=== PATIENT | male | born 1980 | race Hispanic/Latino ===

== ENCOUNTER 2024-06-27 17:30 | Inpatient (IN) | payer OTHER, SELFPAY ==
[2024-06-27] MEDS ORDERED: Azithromycin 500 MG VIAL ONE (18:03)
[2024-06-27 18:26] LABS: Actual Bicarbonate (HCO3a) 23.7 mEq/L (22-28); Analyzer IN Cardio ER; Base Excess (BEa) -0.2 mEq/L (-2.0 to +3.0); CO2 Tension 36.2 mmHg (35.0-45.0); Calcium, Ionized (arterial) 1.05 mmol/L (1.12-1.30); Carboxyhemoglobin (COHb) 0.3 gm% (0.0-3.0); Hematocrit-ABG 33 % (42.0-52.0); Hemoglobin (Hb) 11.2 g/dL (14.0-18.0); O2 Tension (PaO2), arterial 111.6 mmHg (80.0-100.0); pH, Arterial 7.434 (7.35-7.45)
[2024-06-27 18:29] LABS: Puncture Site Right Radial artery
[2024-06-27 18:37] LABS: #Basophils 0.04 10x3/uL (0.0-0.2); #Eosinphils Less than 0.03 10x3/uL (0.0-0.7); %Basophils 0.3 % (0.0-1.0); %Eosinophils 0.1 % (0.0-10.0); %Lymphocytes 3.6 % (21.0-51.0); %Monocytes 6.1 % (0.0-10.0); %Neutrophils 89.1 % (42.0-75.0); Hematocrit 32.9 % (42.0-52.0); Hemoglobin 10.9 g/dL (14.0-18.0); Mean Corpuscular HGB CONC 33.1 g/dL (32.0-36.0); Mean Corpuscular Hemoglobin 33.5 pg (27.0-31.0); Mean Corpuscular Volume 101.2 fL (78.0-98.0); Mean Platelet Volume 8.5 fL (7.4-10.4); Platelet Count 374 10x3/uL (130-400); RBC Distribution Width 12.8 % (11.5-14.5); Red Blood Cell (RBC) Count 3.25 mill/uL (4.70-6.10)
[2024-06-27 19:06] LABS: Troponin I 3.337 ng/mL (< 0.028)
[2024-06-27] MEDS ORDERED: Aspirin Chewable 81 MG TAB ONE (19:17)
[2024-06-27 21:02] LABS: Acetaminophen Less than 10 mcg/mL (Less than 10); Alcohol Less than 10.0 mg/dL (Less than 10); Salicylate Less than 8.0 mg/dL (Less than 8.0)
[2024-06-27] MEDS ORDERED: Enoxaparin 100 MG (1 mL) SYRINGE ONE (21:19)
[2024-06-27] MEDS ORDERED: Dextrose 5% in Water 1,000 ML IV PRN (21:24)
[2024-06-27] MEDS ORDERED: Dextrose 50% Abboject 50 ML SYRINGE SLOW IVP PRN (21:24)
[2024-06-27] MEDS ORDERED: Glucagon 1 MG/ML KIT IM PRN (21:24)
[2024-06-27 23:38] LABS: Troponin I 7.946 ng/mL (< 0.028)
[2024-06-28 01:55] LABS: Troponin I 10.733 ng/mL (< 0.028)
[2024-06-28] MEDS: Fluticasone Propionate Nasal Spray 16 gm Bottle NASAL SCH (03:02)
[2024-06-28] MEDS: Vancomycin (BATCH) 2 GM in Premix 1 BAG IVPB SCH ×2 (03:05→13:38)
[2024-06-28 04:05] LABS: Amphetamine Not Detected (NotDetected); Barbiturates Screen Not Detected (NotDetected); Benzodiazepine Screen Not Detected (NotDetected); Cocaine Metabolite Screen Not Detected (NotDetected); Methadone Not Detected (NotDetected); Methamphetamine Not Detected (NotDetected); Opiate Screen Not Detected (NotDetected); Oxycodone Screen Not Detected (NotDetected); Phencyclidine (PCP) Not Detected (NotDetected); THC/Cannabinoid Screen Not Detected (NotDetected); Tricyclic Screen Not Detected (NotDetected)
[2024-06-28 04:10] LABS: Legionella Urinary Ag Negative (Negative); Strep pneumo Urine Ag NEGATIVE (NEGATIVE)
[2024-06-28] MEDS ORDERED: Lorazepam 2 MG/ML VIAL IM PRN (05:04)
[2024-06-28] MEDS ORDERED: Lorazepam 1 MG TAB PO PRN (05:04)
[2024-06-28] MEDS ORDERED: Ondansetron ODT 4 MG TAB PO PRN (05:04)
[2024-06-28] MEDS ORDERED: Ipratropium/Albuterol 3 ML NEB NEB PRN (05:11)
[2024-06-28] MEDS ORDERED: Electrolyte Replacement Protocol 1 EACH FS SCH (05:15)
[2024-06-28 05:38] LABS: Hemoglobin A1c 7.8 % (4.0-6.0)
[2024-06-28] MEDS: Cefepime 2 GM in Sodium Chloride 0.9% 100 ML IVPB SCH ×2 (05:38→06:09)
[2024-06-28 05:44] LABS: Lactic Acid 1.19 mmol/L (0.5-2.2)
[2024-06-28 05:45] LABS: #Basophils 0.04 10x3/uL (0.0-0.2); #Eosinphils Less than 0.03 10x3/uL (0.0-0.7); %Basophils 0.3 % (0.0-1.0); %Eosinophils 0.1 % (0.0-10.0); %Lymphocytes 8.9 % (21.0-51.0); %Monocytes 7.3 % (0.0-10.0); %Neutrophils 82.5 % (42.0-75.0); Hematocrit 30.5 % (42.0-52.0); Mean Corpuscular HGB CONC 32.8 g/dL (32.0-36.0); Mean Corpuscular Hemoglobin 33.2 pg (27.0-31.0); Mean Corpuscular Volume 101.3 fL (78.0-98.0); Mean Platelet Volume 8.8 fL (7.4-10.4); Platelet Count 392 10x3/uL (130-400); Red Blood Cell (RBC) Count 3.01 mill/uL (4.70-6.10)
[2024-06-28 05:52] LABS: Critical Call Chem Troponin I RESULT DECREASING
[2024-06-28 05:57] LABS: ALT (SGPT) 13 U/L (8-55); AST (SGOT) 44 U/L (5-34); Albumin 2.5 g/dL (3.5-5.0); Alkaline Phosphatase 110 U/L (40-110); Anion Gap 15 mmol/L (10-20); BUN (Urea Nitrogen) 18 mg/dL (8.9-20.6); Bilirubin, Total 0.3 mg/dL (0.2-1.2); Calc. Creatinine Clearance 211 mL/min (70-130); Calcium 8.3 mg/dL (7.8-10.44); Carbon Dioxide 21 mmol/L (22-29); Chloride 107 mmol/L (98-107); Estimated GFR 118; Globulin 4.5 g/dL (2.4-3.5); Glucose 135 mg/dL (70-105); Magnesium 1.7 mg/dL (1.6-2.6); Potassium 3.4 mmol/L (3.5-5.1); Sodium 140 mmol/L (136-145)
[2024-06-28 06:03] LABS: Bilirubin, Direct 0.1 mg/dL (0.1-0.3); Phosphorus 1.9 mg/dL (2.3-4.7)
[2024-06-28] MEDS: Thiamine HCl 200 MG/2 ML VIAL SLOW IVP SCH (06:03)
[2024-06-28] MEDS: Lorazepam 1 MG TAB PO SCH (06:03)
[2024-06-28] MEDS: Furosemide 20 MG (2 mL) VIAL SLOW IVP SCH (06:04)
[2024-06-28] MEDS: Acetaminophen 325 MG TAB PO PRN (06:16)
[2024-06-28] MEDS ORDERED: Magnesium 2 GM/50 ML(in water) 2 GM in Premix 1 BAG IVPB SCH (08:00)
[2024-06-28] MEDS ORDERED: Vancomycin 1.25 GM in Sodium Chloride 0.9% 250 ML 250 ML IVPB SCH (08:00)
[2024-06-28] MEDS: Multivit, Therapeutic 1 TAB PO SCH (08:48)
[2024-06-28] MEDS: PHOS-NAK 1 PKT PACK PO SCH (08:48)
[2024-06-28] MEDS: Magnesium 2 GM/50 ML(in water) 2 GM in Premix 1 BAG IVPB SCH (08:49)
[2024-06-28] MEDS: Enoxaparin 40 MG (0.4 mL) SYRINGE SC SCH (08:49)
[2024-06-28] MEDS: guaiFENesin ER 600 MG TAB PO SCH (08:49)
[2024-06-28] MEDS: Folic Acid 1 MG TAB PO SCH (08:49)
[2024-06-28] MEDS: Potassium Chloride 20 MEQ TAB PO SCH ×2 (08:49→16:52)
[2024-06-28] MEDS: Aspirin 81 mg Enteric Coated Tablet PO SCH (11:27)
[2024-06-28] MEDS: Vancomycin (BATCH) 1.25 GM in Premix 1 BAG IVPB SCH (11:28)
[2024-06-28] MEDS: Metoprolol Tartrate 25 MG TAB PO SCH ×2 (11:28→19:57)
[2024-06-28] MEDS: Enoxaparin 60 MG (0.6 mL) SYRINGE SC SCH (11:28)
[2024-06-28 13:59] LABS: Potassium 3.5 mmol/L (3.5-5.1)
[2024-06-28] MEDS: Insulin Lispro 100 UNIT/ML 10 ML VIAL SC PRN (16:53)
[2024-06-28] MEDS: Atorvastatin Calcium 40 MG TAB PO SCH (19:57)
[2024-06-28] MEDS: Azithromycin 500 MG in Sodium Chloride 0.9% 250 ML 250 ML IVPB SCH (19:58)
[2024-06-28] MEDS ORDERED: Loperamide HCl 2 MG CAP PO PRN (22:47)
[2024-06-29] MEDS: Ondansetron PF 4 MG/2 ML Vial IVP PRN (01:14)
[2024-06-29] MEDS: traMADol HCl 50 MG TAB PO PRN (01:23)
[2024-06-29] MEDS: Morphine 2 MG/ML VIAL SLOW IVP PRN (02:40)
[2024-06-29] MEDS: Dexmedetomidine In 0.9 % NaCl 100 ML IVPB SCH (02:41)
[2024-06-29 04:20] LABS: #Basophils 0.03 10x3/uL (0.0-0.2); #Eosinphils Less than 0.03 10x3/uL (0.0-0.7); %Basophils 0.2 % (0.0-1.0); %Eosinophils 0.1 % (0.0-10.0); %Monocytes 5.8 % (0.0-10.0); Hematocrit 33.1 % (42.0-52.0); Hemoglobin 10.5 g/dL (14.0-18.0); Mean Corpuscular HGB CONC 31.7 g/dL (32.0-36.0); Mean Corpuscular Hemoglobin 32.6 pg (27.0-31.0); Mean Corpuscular Volume 102.8 fL (78.0-98.0); Mean Platelet Volume 8.6 fL (7.4-10.4); Platelet Count 382 10x3/uL (130-400); RBC Distribution Width 12.7 % (11.5-14.5); Red Blood Cell (RBC) Count 3.22 mill/uL (4.70-6.10)
[2024-06-29 04:42] LABS: Phosphorus 2.2 mg/dL (2.3-4.7)
[2024-06-29 04:48] LABS: ALT (SGPT) 11 U/L (8-55); AST (SGOT) 19 U/L (5-34); Albumin 2.4 g/dL (3.5-5.0); Alkaline Phosphatase 90 U/L (40-110); Anion Gap 20 mmol/L (10-20); BUN (Urea Nitrogen) 20 mg/dL (8.9-20.6); Bilirubin, Total 0.3 mg/dL (0.2-1.2); Calc. Creatinine Clearance 214 mL/min (70-130); Calcium 8.6 mg/dL (7.8-10.44); Carbon Dioxide 20 mmol/L (22-29); Chloride 106 mmol/L (98-107); Estimated GFR 118; Globulin 4.7 g/dL (2.4-3.5); Glucose 194 mg/dL (70-105); Magnesium 2.1 mg/dL (1.6-2.6); Potassium 3.7 mmol/L (3.5-5.1); Protein, Total 7.1 g/dL (6.0-8.3); Sodium 142 mmol/L (136-145)
[2024-06-29 04:56] LABS: Vancomycin, Random 24.3 ug/mL (See Comment)
[2024-06-29] MEDS: Cefepime 2 GM in Sodium Chloride 0.9% 100 ML IVPB SCH (13:36)
[2024-06-29] MEDS: Sacubitril 24MG/Valsartan 26 MG TAB PO SCH (19:56)
[2024-06-29] MEDS: Insulin Glargine 30 UNITS/0.3 ML VIAL SC SCH (21:16)
[2024-06-29] MEDS: Promethazine HCl 12.5 MG in Sodium Chloride 0.9% 50 ML IVPB PRN (22:19)
[2024-06-30] MEDS: Lorazepam 1 MG TAB PO PRN ×2 (02:13→10:40)
[2024-06-30 05:43] LABS: #Basophils 0.05 10x3/uL (0.0-0.2); %Basophils 0.4 % (0.0-1.0); %Eosinophils 0.5 % (0.0-10.0); %Lymphocytes 9.4 % (21.0-51.0); %Monocytes 8.2 % (0.0-10.0); %Neutrophils 81.1 % (42.0-75.0); Hemoglobin 9.8 g/dL (14.0-18.0); Mean Corpuscular HGB CONC 33.8 g/dL (32.0-36.0); Mean Corpuscular Hemoglobin 33.7 pg (27.0-31.0); Mean Corpuscular Volume 99.7 fL (78.0-98.0); Mean Platelet Volume 8.7 fL (7.4-10.4); Platelet Count 376 10x3/uL (130-400); RBC Distribution Width 12.3 % (11.5-14.5); Red Blood Cell (RBC) Count 2.91 mill/uL (4.70-6.10)
[2024-06-30 06:06] LABS: ALT (SGPT) 9 U/L (8-55); AST (SGOT) 15 U/L (5-34); Albumin 2.3 g/dL (3.5-5.0); Alkaline Phosphatase 77 U/L (40-110); Anion Gap 17 mmol/L (10-20); BUN (Urea Nitrogen) 16 mg/dL (8.9-20.6); Bilirubin, Total 0.2 mg/dL (0.2-1.2); Calc. Creatinine Clearance 231 mL/min (70-130); Calcium 7.9 mg/dL (7.8-10.44); Carbon Dioxide 23 mmol/L (22-29); Chloride 102 mmol/L (98-107); Estimated GFR 121; Globulin 4.3 g/dL (2.4-3.5); Glucose 141 mg/dL (70-105); Potassium 3.5 mmol/L (3.5-5.1); Protein, Total 6.6 g/dL (6.0-8.3); Sodium 138 mmol/L (136-145)
[2024-06-30] MEDS: Lorazepam 0.5 MG TAB PO SCH (06:31)
[2024-06-30] MEDS: Potassium Chloride 20 MEQ TAB PO SCH (08:53)
[2024-06-30] MEDS ORDERED: Lidocaine 1% PF 5 ML VIAL ONE (11:55)
[2024-06-30] MEDS ORDERED: SUCCINYLCHOLINE/SOD CL,ISO/PF 200 MG/10 ML SYRINGE FS ONE (12:16)
[2024-06-30] MEDS ORDERED: Etomidate 40 MG (20 mL) VIAL ONE (12:17)
[2024-06-30] MEDS ORDERED: fentaNYL PF 100 MCG/2 ML SYRINGE ONE ×2 (12:19→13:42)
[2024-06-30] MEDS ORDERED: Rocuronium Bromide 10 MG/ML (10ML VIAL) ONE (12:20)
[2024-06-30] MEDS ORDERED: Midazolam HCl 2 mg/2 ml Vial ONE ×2 (12:20→13:36)
[2024-06-30] MEDS ORDERED: Ondansetron PF 4 MG/2 ML Vial ONE (12:20)
[2024-06-30 12:53] LABS: Potassium 3.6 mmol/L (3.5-5.1)
[2024-06-30] MEDS ORDERED: PROPOFOL 20 ML ONE (13:15)
[2024-06-30] MEDS ORDERED: PHENYLEPHRINE-NS 100 MCG/ML 10 ML SYRINGE ONE (13:28)
[2024-06-30] MEDS ORDERED: Ventilator Sedation Protocol 1 EACH FS SCH (13:43)
[2024-06-30] MEDS ORDERED: DISCONTINUE PREVIOUS NARCOTIC PAIN MEDICATIONS AND BENZODIAZEPINES FS SCH (14:00)
[2024-06-30] MEDS ORDERED: Propofol BOLUS 1,000 MG/100 ML VIAL IV PRN (14:00)
[2024-06-30] MEDS ORDERED: Fentanyl BOLUS 250 ML IVPB PRN (14:00)
[2024-06-30] MEDS: Fentanyl CADD 100 ML IV SCH (14:24)
[2024-06-30] MEDS: Lorazepam 2 MG/ML VIAL SLOW IVP PRN (14:27)
[2024-06-30] MEDS: fentaNYL 50 mcg/mL 1 mL Vial SLOW IVP SCH (14:30)
[2024-06-30] MEDS: Propofol 1,000 MG/100 ML VIAL IV PRN (14:44)
[2024-06-30] MEDS: fentaNYL 50 mcg/mL 1 mL Vial ONE (15:01)
[2024-06-30 16:55] LABS: Base Excess (BEa) 0.6 mEq/L (-2.0 to +3.0); CO2 Tension 45.1 mmHg (35.0-45.0); Calcium, Ionized (arterial) 1.03 mmol/L (1.12-1.30); Carboxyhemoglobin (COHb) 0.6 gm% (0.0-3.0); Hematocrit-ABG 29 % (42.0-52.0); O2 Tension (PaO2), arterial 114.4 mmHg (80.0-100.0); Potassium - ABG Lab 3.93 mmol/L (3.70-5.30); pH, Arterial 7.378 (7.35-7.45)
[2024-06-30 16:57] LABS: ALV-art Gradient 114.425 mmHg (0-20); Puncture Site Arterial Line
[2024-06-30] MEDS: Morphine 2 MG/ML VIAL SLOW IVP PRN (19:40)
[2024-06-30] MEDS: Sodium Chloride 0.9% 1,000 ML IV SCH (21:41)
[2024-06-30] MEDS: Sodium Chloride 0.9% 500 ML IV SCH (21:41)
[2024-07-01] MEDS: NOREPINEPHRINE 8 MG/250 ML-D5W 250 ML IVPB SCH (00:05)
[2024-07-01] MEDS: Dexmedetomidine 1,000 MCG in NS 250 mL IVPB SCH (03:03)
[2024-07-01 04:37] LABS: Bacteria/HPF None Seen HPF (None Seen); RBC/HPF 0-3 HPF (0-3); Squamous Epithelial 0-3 HPF (0-3)
[2024-07-01] MEDS ORDERED: Lorazepam 0.5 MG TAB PO PRN (05:04)
[2024-07-01 07:30] LABS: #Basophils 0.05 10x3/uL (0.0-0.2); #Eosinphils Less than 0.03 10x3/uL (0.0-0.7); %Basophils 0.3 % (0.0-1.0); %Eosinophils 0.1 % (0.0-10.0); %Lymphocytes 6.6 % (21.0-51.0); %Monocytes 8.3 % (0.0-10.0); %Neutrophils 83.8 % (42.0-75.0); Hematocrit 28.3 % (42.0-52.0); Hemoglobin 9.4 g/dL (14.0-18.0); Mean Corpuscular HGB CONC 33.2 g/dL (32.0-36.0); Mean Corpuscular Hemoglobin 34.3 pg (27.0-31.0); Mean Corpuscular Volume 103.3 fL (78.0-98.0); Mean Platelet Volume 8.8 fL (7.4-10.4); Platelet Count 327 10x3/uL (130-400); RBC Distribution Width 12.5 % (11.5-14.5); Red Blood Cell (RBC) Count 2.74 mill/uL (4.70-6.10)
[2024-07-01 07:47] LABS: Anion Gap 18 mmol/L (10-20); BUN (Urea Nitrogen) 20 mg/dL (8.9-20.6); Calc. Creatinine Clearance 114 mL/min (70-130); Calcium 7.4 mg/dL (7.8-10.44); Carbon Dioxide 20 mmol/L (22-29); Chloride 104 mmol/L (98-107); Estimated GFR 70; Glucose 123 mg/dL (70-105); Potassium 3.6 mmol/L (3.5-5.1); Sodium 138 mmol/L (136-145)
[2024-07-01] MEDS: Thiamine 100 MG TAB PO SCH (07:50)
[2024-07-01] MEDS ORDERED: traMADol HCl 50 MG TAB PO PRN (10:30)
[2024-07-01] MEDS: Morphine 2 MG/ML VIAL SLOW IVP PRN (10:47)
[2024-07-02 05:08] LABS: #Basophils 0.04 10x3/uL (0.0-0.2); #Eosinphils Less than 0.03 10x3/uL (0.0-0.7); %Basophils 0.2 % (0.0-1.0); %Eosinophils 0.1 % (0.0-10.0); %Lymphocytes 5.1 % (21.0-51.0); %Monocytes 6.1 % (0.0-10.0); %Neutrophils 87.1 % (42.0-75.0); Hematocrit 24.6 % (42.0-52.0); Hemoglobin 8.1 g/dL (14.0-18.0); Mean Corpuscular HGB CONC 32.9 g/dL (32.0-36.0); Mean Corpuscular Hemoglobin 33.8 pg (27.0-31.0); Mean Corpuscular Volume 102.5 fL (78.0-98.0); Mean Platelet Volume 9.4 fL (7.4-10.4); Platelet Count 343 10x3/uL (130-400); RBC Distribution Width 12.7 % (11.5-14.5)
[2024-07-02 05:09] LABS: Anion Gap 15 mmol/L (10-20); BUN (Urea Nitrogen) 22 mg/dL (8.9-20.6); Calc. Creatinine Clearance 128 mL/min (70-130); Calcium 7.3 mg/dL (7.8-10.44); Carbon Dioxide 19 mmol/L (22-29); Chloride 105 mmol/L (98-107); Estimated GFR 80; Glucose 213 mg/dL (70-105); Potassium 3.3 mmol/L (3.5-5.1); Sodium 136 mmol/L (136-145)
[2024-07-02 05:11] VITALS: BMI 32.0
[2024-07-02] MEDS ORDERED: Potassium Bicarbonate/Cit Ac 20 MEQ TAB PO SCH (08:00)
[2024-07-02] MEDS: Potassium Chloride 20 MEQ in Premix 1 BAG IVPB SCH ×2 (08:14→21:18)
[2024-07-02] MEDS ORDERED: Iopamidol-370 76% 500 ML MDV (1 ML CHARGE) ONE (09:31)
[2024-07-02] MEDS: Morphine 4 MG/ML VIAL SLOW IVP SCH (13:46)
[2024-07-02 14:53] LABS: Potassium 3.4 mmol/L (3.5-5.1)
[2024-07-02] MEDS ORDERED: Etomidate 40 MG (20 mL) VIAL ONE (15:45)
[2024-07-02] MEDS ORDERED: fentaNYL PF 100 MCG/2 ML SYRINGE ONE (15:52)
[2024-07-02] MEDS ORDERED: Rocuronium Bromide 10 MG/ML (10ML VIAL) ONE (15:54)
[2024-07-02] MEDS ORDERED: Lidocaine 1% PF 5 ML VIAL ONE (16:38)
[2024-07-02] MEDS ORDERED: SUGAMMADEX SODIUM 200 MG/2 ML VIAL ONE (16:38)
[2024-07-02] MEDS ORDERED: Ondansetron PF 4 MG/2 ML Vial ONE (16:45)
[2024-07-02] MEDS: HYDROmorphone 0.5 MG/0.5 ML SYRINGE SLOW IVP SCH (18:06)
[2024-07-02] MEDS: Clindamycin/D5W 900 MG in Premix 1 BAG IVPB SCH (22:56)
[2024-07-03 04:35] LABS: #Basophils 0.03 10x3/uL (0.0-0.2); %Basophils 0.2 % (0.0-1.0); %Eosinophils 0.2 % (0.0-10.0); %Lymphocytes 5.2 % (21.0-51.0); %Monocytes 5.5 % (0.0-10.0); %Neutrophils 87.5 % (42.0-75.0); Hematocrit 24.1 % (42.0-52.0); Hemoglobin 7.8 g/dL (14.0-18.0); Mean Corpuscular HGB CONC 32.4 g/dL (32.0-36.0); Mean Corpuscular Hemoglobin 33.5 pg (27.0-31.0); Mean Corpuscular Volume 103.4 fL (78.0-98.0); Mean Platelet Volume 9.7 fL (7.4-10.4); Platelet Count 346 10x3/uL (130-400); RBC Distribution Width 12.9 % (11.5-14.5); Red Blood Cell (RBC) Count 2.33 mill/uL (4.70-6.10)
[2024-07-03 04:49] LABS: Anion Gap 14 mmol/L (10-20); BUN (Urea Nitrogen) 19 mg/dL (8.9-20.6); Calc. Creatinine Clearance 161 mL/min (70-130); Calcium 7.4 mg/dL (7.8-10.44); Carbon Dioxide 21 mmol/L (22-29); Chloride 106 mmol/L (98-107); Estimated GFR 106; Glucose 202 mg/dL (70-105); Potassium 3.9 mmol/L (3.5-5.1); Sodium 137 mmol/L (136-145)
[2024-07-03] MEDS: HYDROmorphone 0.5 MG/0.5 ML SYRINGE SLOW IVP SCH (09:11)
[2024-07-03] MEDS ORDERED: HYDROmorphone 0.5 MG/0.5 ML SYRINGE SLOW IVP PRN (09:32)
[2024-07-03] MEDS ORDERED: Naloxone HCl 0.4 mg/ml Vial IV PRN (09:57)
[2024-07-03] MEDS ORDERED: diphenhydrAMINE 50 MG/ML VIAL IM PRN (09:57)
[2024-07-03] MEDS ORDERED: Communication Order-Pharmacy FS SCH (10:00)
[2024-07-03] MEDS: HYDROmorphone/PF 10 MG in Sodium Chloride 0.9% 99 ML IV PRN (11:20)
[2024-07-03] MEDS: Metoclopramide HCl 10 MG (2 mL) VIAL IVP SCH ×2 (17:05→21:36)
[2024-07-03] MEDS: Insulin Lispro 100 UNIT/ML 10 ML VIAL SC PRN (20:26)
[2024-07-03] MEDS: Amino Acids 4.25 %/Dextrose 5% 1,000 ML IV SCH (20:41)
[2024-07-04 05:09] LABS: #Basophils 0.04 10x3/uL (0.0-0.2); %Basophils 0.3 % (0.0-1.0); %Monocytes 6.8 % (0.0-10.0); %Neutrophils 82.1 % (42.0-75.0); Hematocrit 23.8 % (42.0-52.0); Hemoglobin 7.7 g/dL (14.0-18.0); Mean Corpuscular HGB CONC 32.4 g/dL (32.0-36.0); Mean Corpuscular Hemoglobin 33.8 pg (27.0-31.0); Mean Corpuscular Volume 104.4 fL (78.0-98.0); Mean Platelet Volume 10.1 fL (7.4-10.4); Platelet Count 336 10x3/uL (130-400); RBC Distribution Width 12.7 % (11.5-14.5); Red Blood Cell (RBC) Count 2.28 mill/uL (4.70-6.10)
[2024-07-04 05:21] LABS: Anion Gap 14 mmol/L (10-20); BUN (Urea Nitrogen) 21 mg/dL (8.9-20.6); Calc. Creatinine Clearance 149 mL/min (70-130); Calcium 7.2 mg/dL (7.8-10.44); Carbon Dioxide 21 mmol/L (22-29); Chloride 101 mmol/L (98-107); Estimated GFR 94; Glucose 294 mg/dL (70-105); Potassium 3.7 mmol/L (3.5-5.1); Sodium 132 mmol/L (136-145)
[2024-07-04] MEDS: Ondansetron PF 4 MG/2 ML Vial IVP PRN (08:18)
[2024-07-04] MEDS: Fat Emulsion 250 ML IVPB SCH (08:58)
[2024-07-04] MEDS: Promethazine HCl 25 MG/ML VIAL IM PRN (12:07)
[2024-07-04] MEDS: Ketorolac Tromethamine 30 MG (1 mL) VIAL IVP PRN (15:56)
[2024-07-04] MEDS ORDERED: Amino Acids 4.25 %/Dextrose 5% 1,000 ML IV SCH (21:00)
[2024-07-05] MEDS: Ketorolac Tromethamine 30 MG (1 mL) VIAL IVP SCH (00:25)
[2024-07-05 05:26] LABS: #Basophils 0.03 10x3/uL (0.0-0.2); %Basophils 0.3 % (0.0-1.0); %Eosinophils 0.9 % (0.0-10.0); %Lymphocytes 10.1 % (21.0-51.0); %Monocytes 7.4 % (0.0-10.0); %Neutrophils 80.8 % (42.0-75.0); Hematocrit 22.5 % (42.0-52.0); Hemoglobin 7.4 g/dL (14.0-18.0); Mean Corpuscular HGB CONC 32.9 g/dL (32.0-36.0); Mean Corpuscular Hemoglobin 32.9 pg (27.0-31.0); Mean Platelet Volume 10.1 fL (7.4-10.4); Platelet Count 420 10x3/uL (130-400); RBC Distribution Width 12.5 % (11.5-14.5); Red Blood Cell (RBC) Count 2.25 mill/uL (4.70-6.10)
[2024-07-05 05:38] LABS: Anion Gap 14 mmol/L (10-20); BUN (Urea Nitrogen) 16 mg/dL (8.9-20.6); Calc. Creatinine Clearance 206 mL/min (70-130); Calcium 7.1 mg/dL (7.8-10.44); Carbon Dioxide 22 mmol/L (22-29); Chloride 102 mmol/L (98-107); Estimated GFR 113; Glucose 227 mg/dL (70-105); Potassium 3.4 mmol/L (3.5-5.1); Sodium 135 mmol/L (136-145)
[2024-07-05] MEDS ORDERED: HYDROmorphone 0.5 MG/0.5 ML SYRINGE SLOW IVP PRN (08:00)
[2024-07-05] MEDS: Potassium Chloride 20 MEQ TAB PO SCH (08:19)
[2024-07-05] MEDS: Morphine 4 MG/ML VIAL SLOW IVP SCH ×2 (09:22→09:33)
[2024-07-05] MEDS: Morphine 4 MG/ML VIAL ONE (09:22)
[2024-07-05 15:17] LABS: Fungus Stain Final report (.)
[2024-07-05 15:17] LABS: Fungus Stain Final report (.)
[2024-07-05] MEDS: cefTRIAXone\\ROCEPHIN 1 GM in Sodium Chloride 0.9% 100 ML IVPB SCH (16:06)
[2024-07-05] MEDS ORDERED: HYDROmorphone/PF 10 MG in Sodium Chloride 0.9% 99 ML IV PRN (21:23)
[2024-07-05] MEDS ORDERED: Naloxone HCl 0.4 mg/ml Vial IV PRN (21:23)
[2024-07-05] MEDS ORDERED: Ondansetron PF 4 MG/2 ML Vial IVP PRN (21:23)
[2024-07-05] MEDS ORDERED: diphenhydrAMINE 50 MG/ML VIAL IM PRN (21:23)
[2024-07-05] MEDS ORDERED: diphenhydrAMINE 25 MG CAP PO PRN (21:23)
[2024-07-05] MEDS ORDERED: diphenhydrAMINE 50 MG/ML VIAL IVP PRN (21:23)
[2024-07-05] MEDS ORDERED: Promethazine HCl 25 MG/ML VIAL IM PRN (21:23)
[2024-07-05] MEDS ORDERED: Communication Order-Pharmacy FS SCH (21:30)
[2024-07-05] MEDS: HYDROmorphone/PF 10 MG in Sodium Chloride 0.9% 99 ML IVPB PRN (22:14)
[2024-07-06 04:37] LABS: #Basophils 0.03 10x3/uL (0.0-0.2); %Basophils 0.2 % (0.0-1.0); %Eosinophils 0.8 % (0.0-10.0); %Lymphocytes 9.5 % (21.0-51.0); %Monocytes 7.9 % (0.0-10.0); %Neutrophils 80.6 % (42.0-75.0); Hematocrit 22.8 % (42.0-52.0); Hemoglobin 7.6 g/dL (14.0-18.0); Mean Corpuscular HGB CONC 33.3 g/dL (32.0-36.0); Mean Corpuscular Hemoglobin 33.5 pg (27.0-31.0); Mean Corpuscular Volume 100.4 fL (78.0-98.0); Mean Platelet Volume 9.2 fL (7.4-10.4); Platelet Count 527 10x3/uL (130-400); RBC Distribution Width 12.6 % (11.5-14.5); Red Blood Cell (RBC) Count 2.27 mill/uL (4.70-6.10)
[2024-07-06 04:54] LABS: Anion Gap 13 mmol/L (10-20); BUN (Urea Nitrogen) 12 mg/dL (8.9-20.6); Calc. Creatinine Clearance 205 mL/min (70-130); Calcium 7.2 mg/dL (7.8-10.44); Carbon Dioxide 23 mmol/L (22-29); Chloride 103 mmol/L (98-107); Estimated GFR 113; Glucose 162 mg/dL (70-105); Potassium 3.6 mmol/L (3.5-5.1); Sodium 135 mmol/L (136-145)
[2024-07-06] MEDS: Promethazine HCl 12.5 MG in Sodium Chloride 0.9% 50 ML IVPB PRN (10:49)
[2024-07-06] MEDS: Sodium Chloride 0.9% 1,000 ML IV SCH (12:29)
[2024-07-06] MEDS: diphenhydrAMINE 50 MG/ML VIAL IVP PRN (16:17)
[2024-07-07] MEDS: Ketorolac Tromethamine 30 MG (1 mL) VIAL IVP SCH (03:15)
[2024-07-07] MEDS: diphenhydrAMINE 25 MG CAP PO PRN (06:01)
[2024-07-07] MEDS: metroNIDAZOLE 500 MG TAB PO SCH (20:29)
[2024-07-07] MEDS: Metoclopramide HCl 10 MG (2 mL) VIAL IVP PRN (22:20)
[2024-07-08] MEDS: Morphine 4 MG/ML VIAL ONE (08:50)
[2024-07-08] MEDS: Morphine 2 MG/ML VIAL SLOW IVP SCH (09:07)
[2024-07-08] MEDS: Furosemide 40 MG (4 mL) VIAL SLOW IVP SCH (09:56)
[2024-07-08 10:38] LABS: #Basophils 0.04 10x3/uL (0.0-0.2); #Eosinphils Less than 0.03 10x3/uL (0.0-0.7); %Basophils 0.3 % (0.0-1.0); %Eosinophils 0.1 % (0.0-10.0); %Lymphocytes 11.1 % (21.0-51.0); %Neutrophils 80.7 % (42.0-75.0); Hematocrit 24.8 % (42.0-52.0); Hemoglobin 8.5 g/dL (14.0-18.0); Mean Corpuscular HGB CONC 34.3 g/dL (32.0-36.0); Mean Corpuscular Hemoglobin 33.6 pg (27.0-31.0); Mean Platelet Volume 9.9 fL (7.4-10.4); Platelet Count 803 10x3/uL (130-400); RBC Distribution Width 12.9 % (11.5-14.5); Red Blood Cell (RBC) Count 2.53 mill/uL (4.70-6.10)
[2024-07-08 11:05] LABS: Anion Gap 21 mmol/L (10-20); BUN (Urea Nitrogen) 9 mg/dL (8.9-20.6); Calc. Creatinine Clearance 202 mL/min (70-130); Calcium 7.7 mg/dL (7.8-10.44); Carbon Dioxide 18 mmol/L (22-29); Chloride 103 mmol/L (98-107); Estimated GFR 112; Glucose 208 mg/dL (70-105); Sodium 138 mmol/L (136-145)
[2024-07-08] MEDS: Acetaminophen 500 MG TAB PO SCH (13:38)
[2024-07-08] MEDS: Albumin 25% 25 GM (100 mL) BOT IVPB SCH (13:39)
[2024-07-08] MEDS: Ketorolac Tromethamine 30 MG (1 mL) VIAL IVP SCH (13:39)
[2024-07-09 06:04] LABS: #Basophils Less than 0.03 10x3/uL (0.0-0.2); %Basophils 0.2 % (0.0-1.0); %Eosinophils 1.1 % (0.0-10.0); %Lymphocytes 19.6 % (21.0-51.0); %Monocytes 9.2 % (0.0-10.0); %Neutrophils 69.1 % (42.0-75.0); Hematocrit 21.8 % (42.0-52.0); Hemoglobin 7.2 g/dL (14.0-18.0); Mean Corpuscular Hemoglobin 32.1 pg (27.0-31.0); Mean Corpuscular Volume 97.3 fL (78.0-98.0); Mean Platelet Volume 8.8 fL (7.4-10.4); Platelet Count 650 10x3/uL (130-400); RBC Distribution Width 12.9 % (11.5-14.5); Red Blood Cell (RBC) Count 2.24 mill/uL (4.70-6.10)
[2024-07-09 06:20] LABS: Anion Gap 16 mmol/L (10-20); BUN (Urea Nitrogen) 12 mg/dL (8.9-20.6); Calc. Creatinine Clearance 202 mL/min (70-130); Calcium 7.7 mg/dL (7.8-10.44); Carbon Dioxide 24 mmol/L (22-29); Chloride 103 mmol/L (98-107); Estimated GFR 112; Glucose 171 mg/dL (70-105); Sodium 140 mmol/L (136-145)
[2024-07-09] MEDS: Potassium Chloride 20 MEQ TAB PO SCH ×2 (08:22→14:00)
[2024-07-09] MEDS ORDERED: HYDROmorphone 2 MG TAB PO PRN (08:40)
[2024-07-09] MEDS ORDERED: HYDROcodone/Acetaminophen 10/325 mg Tablet PO PRN (08:41)
[2024-07-09] MEDS: HYDROmorphone 0.5 MG/0.5 ML SYRINGE SLOW IVP PRN ×2 (14:00→18:46)
[2024-07-09 15:55] LABS: Potassium 3.1 mmol/L (3.5-5.1)
[2024-07-09] MEDS: Potassium Chloride 20 MEQ in Premix 1 BAG IVPB SCH (22:01)
[2024-07-09] MEDS: cefTRIAXone\\ROCEPHIN 1 GM in Sodium Chloride 0.9% 100 ML IVPB SCH (22:01)
[2024-07-10 04:43] LABS: #Basophils 0.04 10x3/uL (0.0-0.2); %Basophils 0.4 % (0.0-1.0); %Eosinophils 0.6 % (0.0-10.0); %Lymphocytes 11.8 % (21.0-51.0); %Monocytes 7.9 % (0.0-10.0); %Neutrophils 78.9 % (42.0-75.0); Hematocrit 24.6 % (42.0-52.0); Hemoglobin 8.1 g/dL (14.0-18.0); Mean Corpuscular HGB CONC 32.9 g/dL (32.0-36.0); Mean Corpuscular Hemoglobin 32.5 pg (27.0-31.0); Mean Corpuscular Volume 98.8 fL (78.0-98.0); Mean Platelet Volume 8.5 fL (7.4-10.4); Platelet Count 823 10x3/uL (130-400); RBC Distribution Width 13.1 % (11.5-14.5); Red Blood Cell (RBC) Count 2.49 mill/uL (4.70-6.10)
[2024-07-10 05:02] LABS: Anion Gap 15 mmol/L (10-20); BUN (Urea Nitrogen) 11 mg/dL (8.9-20.6); Calc. Creatinine Clearance 210 mL/min (70-130); Carbon Dioxide 26 mmol/L (22-29); Chloride 103 mmol/L (98-107); Estimated GFR 113; Glucose 194 mg/dL (70-105); Potassium 4.1 mmol/L (3.5-5.1); Sodium 140 mmol/L (136-145)
[2024-07-10] MEDS: ALPRAZolam 1 MG TAB PO PRN (09:30)
[2024-07-10] MEDS ORDERED: Ibuprofen 600 MG TAB PO PRN (13:13)
[2024-07-10] MEDS: traMADol HCl 50 MG TAB PO PRN (14:17)
[2024-07-10 15:06] VITALS: BMI 35.4
[2024-07-10] MEDS: Ondansetron PF 4 MG/2 ML Vial IVP PRN (16:26)
[2024-07-10] MEDS: Acetaminophen 500 MG TAB PO SCH (16:28)
[2024-07-10] MEDS ORDERED: diphenhydrAMINE 50 MG/ML VIAL IVP PRN (19:14)
[2024-07-10] MEDS ORDERED: Naloxone HCl 0.4 mg/ml Vial IV PRN (19:14)
[2024-07-10] MEDS ORDERED: diphenhydrAMINE 25 MG CAP PO PRN (19:14)
[2024-07-10] MEDS ORDERED: diphenhydrAMINE 50 MG/ML VIAL IM PRN (19:14)
[2024-07-10] MEDS ORDERED: Communication Order-Pharmacy FS SCH (19:15)
[2024-07-10] MEDS: cefTRIAXone\\ROCEPHIN 2 GM in Sodium Chloride 0.9% 100 ML IVPB SCH (21:59)
[2024-07-10] MEDS: HYDROmorphone/PF 10 MG in Sodium Chloride 0.9% 99 ML IV PRN (22:00)
[2024-07-10] MEDS: Promethazine HCl 25 MG/ML VIAL IM PRN (23:24)
[2024-07-11 05:17] LABS: #Basophils 0.06 10x3/uL (0.0-0.2); #Eosinphils Less than 0.03 10x3/uL (0.0-0.7); %Basophils 0.5 % (0.0-1.0); %Eosinophils 0.1 % (0.0-10.0); %Lymphocytes 7.7 % (21.0-51.0); %Monocytes 6.2 % (0.0-10.0); %Neutrophils 84.9 % (42.0-75.0); Hematocrit 28.1 % (42.0-52.0); Hemoglobin 8.5 g/dL (14.0-18.0); Mean Corpuscular HGB CONC 30.2 g/dL (32.0-36.0); Mean Corpuscular Hemoglobin 33.1 pg (27.0-31.0); Mean Corpuscular Volume 109.3 fL (78.0-98.0); Mean Platelet Volume 9.8 fL (7.4-10.4); Platelet Count 407 10x3/uL (130-400); RBC Distribution Width 13.2 % (11.5-14.5); Red Blood Cell (RBC) Count 2.57 mill/uL (4.70-6.10)
[2024-07-11 05:39] LABS: Anion Gap 19 mmol/L (10-20); BUN (Urea Nitrogen) 13 mg/dL (8.9-20.6); Calc. Creatinine Clearance 166 mL/min (70-130); Calcium 8.2 mg/dL (7.8-10.44); Carbon Dioxide 23 mmol/L (22-29); Chloride 100 mmol/L (98-107); Estimated GFR 97; Glucose 280 mg/dL (70-105); Potassium 3.9 mmol/L (3.5-5.1); Sodium 138 mmol/L (136-145)
[2024-07-11] MEDS: Metoclopramide HCl 10 MG (2 mL) VIAL IVP SCH (06:37)
[2024-07-11] MEDS: Morphine 4 MG/ML VIAL SLOW IVP SCH (23:16)
[2024-07-12] MEDS: Morphine 4 MG/ML VIAL SLOW IVP SCH (03:33)
[2024-07-12] MEDS: Metoclopramide HCl 10 MG (2 mL) VIAL IVP SCH (03:33)
[2024-07-12 05:12] LABS: #Basophils 0.07 10x3/uL (0.0-0.2); %Basophils 0.7 % (0.0-1.0); %Eosinophils 1.4 % (0.0-10.0); %Lymphocytes 19.7 % (21.0-51.0); %Monocytes 5.9 % (0.0-10.0); %Neutrophils 71.8 % (42.0-75.0); Hematocrit 27.8 % (42.0-52.0); Hemoglobin 8.8 g/dL (14.0-18.0); Mean Corpuscular HGB CONC 31.7 g/dL (32.0-36.0); Mean Corpuscular Hemoglobin 32.5 pg (27.0-31.0); Mean Corpuscular Volume 102.6 fL (78.0-98.0); Mean Platelet Volume 8.3 fL (7.4-10.4); Platelet Count 809 10x3/uL (130-400); RBC Distribution Width 13.2 % (11.5-14.5); Red Blood Cell (RBC) Count 2.71 mill/uL (4.70-6.10)
[2024-07-12 05:29] LABS: Anion Gap 13 mmol/L (10-20); BUN (Urea Nitrogen) 14 mg/dL (8.9-20.6); Calc. Creatinine Clearance 183 mL/min (70-130); Carbon Dioxide 33 mmol/L (22-29); Chloride 101 mmol/L (98-107); Estimated GFR 109; Glucose 227 mg/dL (70-105); Potassium 3.8 mmol/L (3.5-5.1); Sodium 143 mmol/L (136-145)
[2024-07-12] MEDS: Ondansetron PF 4 MG/2 ML Vial IVP PRN (15:23)
[2024-07-13] MEDS: Metoclopramide HCl 10 MG (2 mL) VIAL IVP SCH (09:22)
[2024-07-14 04:45] LABS: #Basophils 0.08 10x3/uL (0.0-0.2); %Basophils 0.8 % (0.0-1.0); %Eosinophils 1.3 % (0.0-10.0); %Lymphocytes 22.2 % (21.0-51.0); %Monocytes 6.3 % (0.0-10.0); %Neutrophils 69.1 % (42.0-75.0); Hematocrit 27.7 % (42.0-52.0); Hemoglobin 9.1 g/dL (14.0-18.0); Mean Corpuscular HGB CONC 32.9 g/dL (32.0-36.0); Mean Corpuscular Hemoglobin 32.5 pg (27.0-31.0); Mean Corpuscular Volume 98.9 fL (78.0-98.0); Mean Platelet Volume 8.3 fL (7.4-10.4); Platelet Count 685 10x3/uL (130-400); RBC Distribution Width 12.9 % (11.5-14.5)
[2024-07-14 04:50] LABS: Anion Gap 12 mmol/L (10-20); BUN (Urea Nitrogen) 10 mg/dL (8.9-20.6); Calc. Creatinine Clearance 195 mL/min (70-130); Calcium 7.8 mg/dL (7.8-10.44); Carbon Dioxide 34 mmol/L (22-29); Chloride 97 mmol/L (98-107); Estimated GFR 111; Glucose 191 mg/dL (70-105); Magnesium 1.3 mg/dL (1.6-2.6); Potassium 3.3 mmol/L (3.5-5.1); Sodium 140 mmol/L (136-145)
[2024-07-14] MEDS: Potassium Chloride 20 MEQ TAB PO SCH (05:34)
[2024-07-14] MEDS: Magnesium 2 GM/50 ML(in water) 2 GM in Premix 1 BAG IVPB SCH (05:35)
[2024-07-14] MEDS ORDERED: Polyethylene Glycol 3350 17 GM Packet PO PRN (17:13)
[2024-07-14] MEDS: Senokot S 8.6-50 MG TAB PO SCH (20:18)
[2024-07-15 06:25] LABS: #Basophils 0.07 10x3/uL (0.0-0.2); %Basophils 0.9 % (0.0-1.0); %Eosinophils 1.2 % (0.0-10.0); %Monocytes 7.6 % (0.0-10.0); %Neutrophils 65.1 % (42.0-75.0); Hematocrit 26.5 % (42.0-52.0); Hemoglobin 8.6 g/dL (14.0-18.0); Mean Corpuscular HGB CONC 32.5 g/dL (32.0-36.0); Mean Corpuscular Hemoglobin 31.7 pg (27.0-31.0); Mean Corpuscular Volume 97.8 fL (78.0-98.0); Mean Platelet Volume 8.4 fL (7.4-10.4); Platelet Count 606 10x3/uL (130-400); RBC Distribution Width 12.9 % (11.5-14.5); Red Blood Cell (RBC) Count 2.71 mill/uL (4.70-6.10)
[2024-07-15 06:48] LABS: Anion Gap 8 mmol/L (10-20); BUN (Urea Nitrogen) 9 mg/dL (8.9-20.6); Calc. Creatinine Clearance 202 mL/min (70-130); Calcium 7.7 mg/dL (7.8-10.44); Carbon Dioxide 34 mmol/L (22-29); Chloride 99 mmol/L (98-107); Estimated GFR 113; Glucose 194 mg/dL (70-105); Magnesium 1.7 mg/dL (1.6-2.6); Potassium 3.3 mmol/L (3.5-5.1); Sodium 138 mmol/L (136-145)
[2024-07-15] MEDS: Potassium Chloride 20 MEQ TAB PO SCH (09:32)
[2024-07-15] MEDS: Magnesium 2 GM/50 ML(in water) 2 GM in Premix 1 BAG IVPB SCH (09:35)
[2024-07-15] MEDS ORDERED: HYDROmorphone/PF 10 MG in Sodium Chloride 0.9% 99 ML IV PRN (13:11)
[2024-07-15] MEDS: oxyCODONE 5 MG TAB PO PRN (15:05)
[2024-07-15] MEDS: Ibuprofen 600 MG TAB PO SCH (18:54)
[2024-07-16] MEDS: oxyCODONE 5 MG TAB PO SCH (02:01)
[2024-07-16 07:50] LABS: #Basophils 0.09 10x3/uL (0.0-0.2); %Basophils 1.5 % (0.0-1.0); %Eosinophils 1.5 % (0.0-10.0); %Lymphocytes 32.2 % (21.0-51.0); %Monocytes 8.2 % (0.0-10.0); %Neutrophils 56.3 % (42.0-75.0); Hemoglobin 8.3 g/dL (14.0-18.0); Mean Corpuscular HGB CONC 31.9 g/dL (32.0-36.0); Mean Corpuscular Hemoglobin 31.9 pg (27.0-31.0); Mean Platelet Volume 8.6 fL (7.4-10.4); Platelet Count 540 10x3/uL (130-400); RBC Distribution Width 12.9 % (11.5-14.5)
[2024-07-16 08:15] LABS: Anion Gap 10 mmol/L (10-20); BUN (Urea Nitrogen) 11 mg/dL (8.9-20.6); Calc. Creatinine Clearance 200 mL/min (70-130); Calcium 7.7 mg/dL (7.8-10.44); Carbon Dioxide 32 mmol/L (22-29); Chloride 99 mmol/L (98-107); Estimated GFR 112; Glucose 227 mg/dL (70-105); Potassium 3.9 mmol/L (3.5-5.1); Sodium 137 mmol/L (136-145)
[2024-07-16] MEDS: Furosemide 40 MG TAB PO SCH (08:33)
[2024-07-16] MEDS ORDERED: Furosemide 20 MG TAB PO SCH (09:00)
[2024-07-16] MEDS: Magnesium 2 GM/50 ML(in water) 2 GM in Premix 1 BAG IVPB SCH (10:09)
[2024-07-16] MEDS ORDERED: Fentanyl 100 MCG/2 ML VIAL SLOW IVP PRN (11:56)
[2024-07-16] MEDS: HYDROcodone/Acetaminophen 10/325 mg Tablet PO SCH (12:25)
[2024-07-16] MEDS: HYDROcodone/Acetaminophen 10/325 mg Tablet PO PRN (12:26)
[2024-07-16] MEDS: Aspirin 81 mg Enteric Coated Tablet PO SCH (17:09)
[2024-07-16] MEDS: Amoxicillin/Potassium Clav 875 MG TAB PO SCH (20:17)
[2024-07-17] MEDS: Aspirin 81 mg Enteric Coated Tablet PO SCH (09:30)
[2024-07-17] MEDS: fentaNYL 50 mcg/mL 1 mL Vial SLOW IVP PRN (15:22)
[2024-07-18 04:35] LABS: #Basophils 0.07 10x3/uL (0.0-0.2); %Basophils 0.9 % (0.0-1.0); %Eosinophils 1.2 % (0.0-10.0); %Lymphocytes 19.1 % (21.0-51.0); %Monocytes 6.6 % (0.0-10.0); %Neutrophils 71.8 % (42.0-75.0); Hemoglobin 8.4 g/dL (14.0-18.0); Mean Corpuscular HGB CONC 32.3 g/dL (32.0-36.0); Mean Corpuscular Hemoglobin 31.7 pg (27.0-31.0); Mean Corpuscular Volume 98.1 fL (78.0-98.0); Mean Platelet Volume 8.8 fL (7.4-10.4); Platelet Count 473 10x3/uL (130-400); RBC Distribution Width 12.8 % (11.5-14.5); Red Blood Cell (RBC) Count 2.65 mill/uL (4.70-6.10)
[2024-07-18 05:06] LABS: Anion Gap 9 mmol/L (10-20); BUN (Urea Nitrogen) 14 mg/dL (8.9-20.6); Calc. Creatinine Clearance 188 mL/min (70-130); Calcium 7.9 mg/dL (7.8-10.44); Carbon Dioxide 32 mmol/L (22-29); Chloride 99 mmol/L (98-107); Estimated GFR 110; Glucose 200 mg/dL (70-105); Potassium 3.8 mmol/L (3.5-5.1); Sodium 136 mmol/L (136-145)
[2024-07-18 17:42] VITALS: TEMP 98
[2024-07-18 18:05] VITALS: BP 138/86
== END 2024-07-18 18:06 | disposition home or self-care (01) | DRG 853 ==
LOC: ERS 17:30 → ERHOLD 20:59 → IMCU/EMU 06-28 02:48 → CCU 06-30 13:39 → IMCU/EMU 07-06 17:25 → MSONC 07-10 15:41
PROVIDERS: ADMIT Internal Medicine; ATTEND Family Medicine
PROC: 4A133R1 Monitoring of Arterial Saturation, Peripheral, Percutaneous Approach (ICD-10-PCS; 2024-06-27)
PROC: 5A0935A Assistance with Respiratory Ventilation, Less than 24 Consecutive Hours, High Flow/Velocity Cannula (ICD-10-PCS; 2024-06-27)
PROC: 0Y990ZZ Drainage of Right Lower Extremity, Open Approach (ICD-10-PCS; principal; 2024-06-30)
PROC: 5A1935Z Respiratory Ventilation, Less than 24 Consecutive Hours (ICD-10-PCS; 2024-06-30)
PROC: 0KBS0ZZ Excision of Right Lower Leg Muscle, Open Approach (ICD-10-PCS; 2024-07-02)
DX: A41.9 Sepsis, unspecified organism (principal); I21.4 Non-ST elevation (NSTEMI) myocardial infarction; J15.9 Unspecified bacterial pneumonia; J96.01 Acute respiratory failure with hypoxia; M72.6 Necrotizing fasciitis; I50.21 Acute systolic (congestive) heart failure; L03.115 Cellulitis of right lower limb; F10.239 Alcohol dependence with withdrawal, unspecified; L97.419 Non-pressure chronic ulcer of right heel and midfoot with unspecified severity; L02.415 Cutaneous abscess of right lower limb; I42.0 Dilated cardiomyopathy; R65.20 Severe sepsis without septic shock; Z79.4 Long term (current) use of insulin; Z79.899 Other long term (current) drug therapy; D53.9 Nutritional anemia, unspecified; E11.621 Type 2 diabetes mellitus with foot ulcer; E11.65 Type 2 diabetes mellitus with hyperglycemia; E87.6 Hypokalemia; N50.89 Other specified disorders of the male genital organs
CPT/HCPCS: 10060; 36415; 36416; 36600; 71045; 74176; 80048; 80053; 80202; 80306; 80307; 81015; 82248; 82607; 82746; 82805; 83036; 83605; 83735; 83880; 84100; 84484; 85025; 86141; 87070; 87076; 87077; 87081; 87102; 87186; 87205; 87206; 87324; 87449; 87899; 93005; 93010; 93306; 94002; 94003; 96372; 96374; 97139; J0456; J0692; J0696; J1170; J1200; J1642; J1650; J1815; J1885; J1940; J2060; J2250; J2272; J2405; J2550; J2704; J2765; J3010; J3370; J3411; J3475; J3480; J3490; J7030; J7050; P9047; Q9967